=== PATIENT | female | born 1960 | race Caucasian/White ===

== ENCOUNTER 2019-08-05 14:01 | Emergency (ER) | payer BC ==
[~2019-08-05] VITALS: Ht 165.1 cm; Wt 68.9 kg
== END 2019-08-05 16:42 | disposition home or self-care (01) ==
LOC: ER 14:01
DX: S52.592A Other fractures of lower end of left radius, initial encounter for closed fracture (principal); V00.121A Fall from non-in-line roller-skates, initial encounter; Y93.21 Activity, ice skating; Y92.330 Ice skating rink (indoor) (outdoor) as the place of occurrence of the external cause; Y99.8 Other external cause status